=== PATIENT | male | born 1960 | race Caucasian/White ===

== ENCOUNTER → 2020-04-12 | Day surgery (SDC) | payer OTHER ==
[~2020-04-12] MED LIST: COLACE100 MG PO; HYDROCODON-ACE1 EAC8 PO; LISINOPRIL-HCT1 EAC1 PO; ROBAXIN 750 MG750 MG PO
== END | disposition home or self-care (01) ==
LOC: LAB 07:44
PROVIDERS: ATTEND Student in an Organized Health Care Education/Training Program
DX: Z01.812 Encounter for preprocedural laboratory examination (principal); Z11.59 Encounter for screening for other viral diseases; M71.38 Other bursal cyst, other site; Z79.899 Other long term (current) drug therapy

== ENCOUNTER 2020-04-17 10:15 | Day surgery (SDC) | payer OTHER ==
[2020-04-16 09:33] LABS: ALBUMIN 4.3 g/dL (3.4-5.0); CALCIUM 9.1 mg/dL (8.5-10.1); CREATININE 0.8 mg/dL (0.7-1.3); POTASSIUM 4.8 mmol/L (3.5-5.1); TOTAL BILIRUBIN 0.6 mg/dL (0.2-1.0); TOTAL PROTEIN 7.2 g/dL (6.4-8.2)
[2020-04-16 09:36] LABS: ABSOLUTE NEUTROPHILS 5.9 thou/uL (1.4-8.2); BASOPHILS 0.4 % (0.0-2.0); HEMATOCRIT 46.6 % (42.0-52.0); LYMPHOCYTES 15.2 % (24.0-44.0); MCH 31.7 pg (26.0-34.0); MCHC 34.5 g/dL (28.0-37.0); MCV 91.9 fL (80.0-100.0); MONOCYTES 9.6 % (1.0-8.0); PLATELET COUNT 259 thou/uL (150-400); POLYS 73.8 % (36.0-66.0); RBC 5.07 mil/uL (4.50-6.00); RDW 12.7 % (10.5-14.5)
--- NOTE | 2020-04-16 16:07 | EKG ---
[facility] [place] [address] ELECTROCARDIOGRAM REPORT Name: JENNIFER MARIN Room #: [facility] M.R.#: [id number] Admission: Attend Phys: Neil Adams MD Discharge: Date of : 64 Report #: [id number] THIS REPORT FOR: cc: Meng Holm James A. DO Couchonnal, Luis F. 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
[~2020-04-17] VITALS: Ht 180.3 cm; Wt 88.9 kg
[~2020-04-17 10:15] MED LIST changes: -COLACE100 MG PO; -ROBAXIN 750 MG750 MG PO
[2020-04-17 12:18] VITALS: BP 143/83
[2020-04-17] MEDS ORDERED: COLACE100 MG PO (14:48)
[2020-04-17] MEDS ORDERED: ROBAXIN 750 MG750 MG PO (14:48)
[2020-04-17 15:23] VITALS: BP 143/83
--- NOTE | 2020-04-21 20:47 | H ---
[facility] [place] [address] HISTORY AND PHYSICAL Name: JENNIFER MARIN Room #: DEP [facility]..#: [id number] Admission: 04/17/20 Attend Phys: Neil Adams MD Discharge: 04/17/20 Date of : 64 Report #: [id number] THIS REPORT FOR: cc: Meng Holm James A. DO Holladay, Frank P. MD ~ CC: Neil Holm DATE OF SERVICE: 04/17/2020 Preop history and physical HISTORY OF PRESENT ILLNESS: The patient is a pleasant 59-year-old man who is having difficulty with back pain and left leg pain. The majority of the pain is in his lower back. He has had back pain for a significant amount of time, but the last few years, the pain has increased. He has pain virtually all the time unless he is lying down. He has had epidural steroid injections. He also had an aspiration of synovial cyst. He said these helped him for 2-3 weeks, but the pain slowly returned. He is taking Lawrence as needed. PAST MEDICAL HISTORY: Hypertension. PAST SURGICAL HISTORY: Torn ACL. CURRENT MEDICATIONS: Lawrence, meloxicam, lisinopril, hydrochlorothiazide. ALLERGIES: No known drug allergies. FAMILY HISTORY: Diabetes. SOCIAL HISTORY: Employed in [employer]. . Smokes 1 pack per day for 30 years. Drinks 2-4 alcoholic beverages per day. REVIEW OF SYSTEMS: A 12-point review of systems was performed and is noncontributory except that mentioned above. PHYSICAL EXAMINATION: GENERAL: Alert, pleasant, in no acute distress. HEENT: Normocephalic, atraumatic. SKIN: Warm and dry. MUSCULOSKELETAL: Lumbar paraspinal muscle bulk is normal, restricted range of motion of the lumbar spine, [id number] tenderness of the lower lumbar spine with palpation, normal range of motion of the lower extremities [address] [address] HISTORY AND PHYSICAL Name: JENNIFER MARIN Room #: [facility]..#: [id number] Admission: 04/17/20 Attend Phys: Neil Adams MD Discharge: 04/17/20 Date of : 64 Report #: [id number] bilaterally. EXTREMITIES: No clubbing, cyanosis or edema. NEUROLOGIC: Alert and oriented x 3, strength is 5/5 in the bilateral lower extremities, sensory was intact to light touch in the lower extremities except a slight decrease in the right lateral thigh with light touch, reflexes were present and symmetric in the lower extremities bilaterally. Negative straight leg raising bilaterally, normal gait. IMAGING: I reviewed a lumbar MRI scan from 02/28/2020. There is stenosis at L3-4. There is an increase in size of the synovial cyst projecting into the left posterior epidural space and does contribute to mass effect on the thecal sac. There is severe stenosis at this level. ASSESSMENT AND PLAN: He has a synovial cyst at L3-4 contributing to severe spinal stenosis at that level. I did recheck lumbar flexion/extension x-rays in which there is no motion seen. My recommendation is that we perform bilateral hemilaminotomies with microdecompression at L3-4 with removal of the synovial cyst. I did discuss this with him in detail. I spoke with him about the surgery and the risk and the expected postoperative course. I did explain to him that in the future, he may require an instrumented lumbar fusion. He understands all of this. He would like to go ahead. We are going to make the arrangements. <ELECTRONICALLY SIGNED> By: Neil Adams MD 04/21/20 2047 1246 1309 Neil Adams MD /nt
--- NOTE | 2020-04-21 20:56 | O ---
[facility] [place] [address] OPERATIVE REPORT Name: JENNIFER MARIN Room #: DEP [facility]..#: [id number] Admission: 04/17/20 Attend Phys: Neil Adams MD Discharge: 04/17/20 Date of : 64 Report #: [id number] THIS REPORT FOR: cc: Meng Holm,Neil Pool MD ~ CC: Neil Holm DATE OF SERVICE: 04/17/2020 PREOPERATIVE DIAGNOSIS: Synovial cyst with severe stenosis at L3-L4. POSTOPERATIVE DIAGNOSIS: Synovial cyst with severe stenosis at L3-L4. OPERATIONS PERFORMED: Left direct laminectomy L3-L4 with removal of synovial cyst and decompression of the dura and nerve root. The operation was done with EMG and SSEP monitoring, fluoroscopy, microscopic dissection. SURGEON: Neil Adams M.D. MAGISTRATE ASSISTANT: NIK Kaur assisted with the surgery. She assisted with the exposure and microdecompression as well as the closure. OPERATIVE INDICATIONS: The patient is a pleasant 59-year-old man who developed intractable back and left leg pain, who was found to have a large synovial cyst and stenosis at L3-L4 and I recommended decompression and removal of synovial cyst. I spoke with him about the potential problems of synovial cyst such as later problems with motion, requiring a fusion. I spoke about the technique of the operation and the fact that occasionally synovial cysts are quite irritating the nerve root and it can take a considerable time for the nerve root pain to resolve. I spoke about the activities following surgery, the risk of the operation. He understood very well and wished to go ahead. DESCRIPTION OF PROCEDURE: Following general endotracheal anesthesia, the patient was positioned prone on the Rishabh table. Lumbar region was prepped and draped in a standard fashion. CLARA hose and AV impulse boots were applied for DVT prophylaxis. Microscope was draped. Fluoroscopy was draped and brought into the field. Monitoring was established. Ancef 2 grams given less than 1 hour prior to initiation of the surgery. Using fluoroscopic guidance, a midline incision was made over the L3-L4 interspace. I dissected down to the skin and subcutaneous tissue, reflected the paraspinal muscles and placed a [place] microdisk retractor, brought in the microscope for the remainder of the surgery. [address] [address] OPERATIVE REPORT Name: JENNIFER MARIN Room #: DEP [facility] Terrie#: [id number] Admission: 04/17/20 Attend Phys: Neil Adams MD Discharge: 04/17/20 Date of : 64 Report #: [id number] Using microscopic technique, I burred down a generous hemilaminotomy with a high speed air drill and then I carried this farther superiorly as I worked to outline the superior and inferior limits of the synovial cyst. The cyst was densely adherent to the overlying ligamentum flavum, which was quite thickened. The synovial cyst invaginated into the dura and it was densely scarred to the dura, required very gentle dissection, freeing up of the ligament and synovial cyst and I gradually cut all the way around it. The L4 root was very free. I then followed up it along the outside edge of the dura and then carried this out to the lateral thickened ligament and synovial cyst and then I gently began to dissect off the scarred synovial cyst and ligament from the dura and peeled out much of the inside invaginated portion of the cyst very, very gently as I worked had an excellent decompression of the cyst removal. I irrigated copiously, I explored carefully, the disc was firm and discectomy was not warranted. The root was quite free. I did perform a partial foraminotomy, the laminotomy across the midline and I assured myself that the region was well decompressed. We irrigated copiously, closed the wound in layers with absorbable suture. The skin was closed with 4-0 subcuticular stitch. I was quite pleased with the surgery. <ELECTRONICALLY SIGNED> By: Neil Adams MD 04/21/20 6236 1440 1501 Neil Adams MD /nt
--- NOTE | 2020-04-22 08:06 | PATH ---
[facility] [address] [place] [address] PATHOLOGY RPT PROCEDURE Name: JENNIFER MARIN Room #: [facility]P [facility] M.R.#: [id number] Admission: 04/17/20 Date of : 64 Discharge: 04/17/20 Report #: [id number] Path Case #: [id number] [facility] Accession Number: [id number] . 01 Material submitted: . vertebral column - SYNOVIAL CYST . 01 Clinical history: . HERNIATED DISC LUMBAR THREE/FOUR PAC 04/16 LUM DECOMP, SYNOVIAL CYSTECTOMY . 02 Diagnosis: Synovial cyst, lumbar laminectomy with decompression: - Fragments of reactive bone as well as cartilage along with fragments of synovium showing chronic inflammation as well as congestion, clinically cyst. (IUV/db; 04/18/2020) LBQ 04/18/2020 1444 Local . 02 Electronically signed: . Roxie Kerr MD, Pathologist NPI- [id number] . 01 Gross description: . The specimen is received in formalin, labeled "Jennifer Marin, synovial cyst". Received is a moderate amount of pink-ram, gritty fibrous material measuring 2.2 x 1.9 x 0.5 cm in aggregate dimensions. The specimen is submitted entirely in cassette A1. (CAA; 04/17/2020) QA/QA 04/17/2020 1804 Local . 02 Pathologist provided ICD-10: M65.9 . 02 CPT . 160443 Specimen Comment: A courtesy copy of this report has been sent to [phone] Specimen Comment: [phone] Specimen Comment: Report sent to / DR MARTÍNEZ Specimen Comment: Report sent to Performed at: [address] [id number] MD Manjeet Melgoza MD Phone: [phone] Performed at: 02 [facility] [address] [place] [address] PATHOLOGY RPT PROCEDURE Name: JENNIFER MARIN Room #: [facility] M.R.#: [id number] Admission: 04/17/20 Date of : 64 Discharge: 04/17/20 Report #: [id number] Path Case #: [id number] [address] [place] [id number] MD Roxie Kerr MD Phone: [phone]
== END 2020-04-17 15:23 | disposition home or self-care (01) ==
LOC: OR 10:15 → TBA 12:11 → OR 13:17
PROVIDERS: ATTEND Neurological Surgery
DX: M71.38 Other bursal cyst, other site (principal); M48.061 Spinal stenosis, lumbar region without neurogenic claudication; M65.88 Other synovitis and tenosynovitis, other site; I10 Essential (primary) hypertension; F17.210 Nicotine dependence, cigarettes, uncomplicated; Z98.890 Other specified postprocedural states; Z79.899 Other long term (current) drug therapy; Z83.3 Family history of diabetes mellitus
CPT/HCPCS: 50010; 50101; 50144; 50402; 50503; 50515; 50704; 50850; 51687; 51779; 53210; 54118; 55106; 56526; 56528; 56532; 56805; 62110; 62900; 70005